=== PATIENT | female | born 1960 | race Two or more races ===

== ENCOUNTER 2017-11-13 12:40 | Emergency (ER) | payer OTHER ==
--- OUTSIDE RECORDS SUMMARY | 2017-11-13 13:30 | XMS REPORT ---
:1960 External Reference #:[id number] Author Organization [facility] Address [address] [address] Phone [phone] Care Team Providers Name Role Phone Bry Fields MD Primary Care Physician Unavailable Payers Type Date Identification Numbers Payment Provider Subscriber Commercial Policy Number: [id number] [employer] Medicaid Shauna Edwards PayID: [id number] [address] [address] [place] [address] Commercial Expires: 2017 Policy Number: [employer] Shauna Edwards [id number] Essential PayID: [id number] [address] [address] [place] [address] Problems Date Description Provider Status Onset: 11/11/2017 Disorder of bursa of shoulder Diony Esquivel MD Active region Onset: 11/11/2017 Sprain of shoulder and upper arm Diony Esquivel MD Active Onset: 11/11/2017 Iliotibial band friction Diony Esquivel MD Active syndrome Onset: 05/29/2013 Chest pain Easton Dong M.D., Active FACC, FASNC Family History Date Family Member(s) Problem(s) Comments General Diabetes brother General Valve replacement mother General Stroke mother and father General Hypertension mother Social History Type Date Description Comments Marital Status Single 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 Tartrate s tablet mouth Sanches, twice a day DO FACC Vitamin D3 Active Capsules [id number] 1 tab by Unknown /0000 mouth once per week Tums 00 Active prn for acid Unknown /0000 reflux Losartan Active Tablets 50-12.5mg Take 1 Unknown Potassium/Hydroc /0000 Tablet By hlorothiazide Mouth Every Day Miconazole 7 Active Cream 2% Insert 1 Unknown /0000 Applicatorfu l Vaginally Every Day Ventolin HFA Active Aerosol 108(90Bas Inhale 2 Unknown /0000 e) Puffs By mcg/Act Mouth Every 4 Hours Iron Active Tablets 325(65Fe) 1 by mouth Unknown /0000 mg every day Clotrimazole Active Cream 1% apply twice Unknown /0000 daily Albuterol Active Nebulizer (2.5mg/3M 1 vial via Unknown Sulfate /0000 L) 0.083% nebulizer 4 times daily as needed Simvastatin Hx Tablets 10mg 30tab 1 po qhs Unknown /0000 s - 01/09 Lisinopril/[place] Hx Tablets 20-25mg 90tab 1 po qd Unknown chlorothiazide /0000 s - 09/17 Amlodipine Hx Tablets 10mg 90tab 1 po qd Unknown Besylate /0000 s - 12/15 Ibuprofen Hx Tablets 600mg 100ta 1 by mouth Stevanovi /0000 bs tid prn for c, - pain Radomir, 09/17 MD Tums Hx prn Unknown /0000 - 12/15 Cpap Hx Device as directed Unknown /0000 used during - the night 01/09 for severe /2016 sleep apnea Alclometasone Hx Ointment 0.05% Unknown Dipropionate /0000 - 09/17 Cyclobenzaprine Hx Tablets 10mg one by mouth Unknown HCL /0000 three times - a day as 09/17 needed spasm Docqlace Hx Capsules 100mg take 2 Unknown /0000 capsule by - mouth at bed 09/17 time prn /2017 Hemorrhoid Hx prn Unknown Preperation /0000 Suppository - 09/17 Miconazole 00 Hx Cream 2% apply twice Unknown Nitrate /0000 a day (use - as needed ) 09/17 Omeprazole 00 Hx Capsules 20mg 1 by mouth Unknown /0000 DR every day - 01/09 Oxycodone-Acetam 00 Hx Tablets 5-325mg take 1 to 2 Unknown inophen /0000 tablets by - mouth every 09/17 6 to 8 hours /2018 as needed pain Tolterodine Hx Caps ER 4mg Unknown Tartrate ER /0000 24HR - 01/09 Triamcinolone Hx Lotion 0.1% apply to dry Unknown Acetonide /0000 skin once or - twice daily 09/17 Tucks Pads / Hx prn Unknown /0000 - 01/09 Simvastatin Hx Tablets 10mg take 1 Unknown /0000 tablet by - mouth at 01/09 Medications Administered in Office Medication Date Status Form Strength Qnty SIG Indications Ordering Provider Inj, Administered Injection Easton Mitchell Regadenoson, 013 Iker, 0.1 MG MOswaldo, FACDontae, FASNC Technetium TC Administered Injection Eastonradha Mitchell 99M 013 Iker TetrofosminMoses, FACC, Per Unit Dose FASNC Up To 40 Millicuries Vital Signs Date Vital Result Comment 11/11/2017 Height 62.5 inches 5'2.50" Weight 208.00 lb Heart Rate 78 /min BP Systolic 150 mmHg BP Diastolic 90 mmHg Pain Level 3 BMI (Body Mass Index) 37.4 kg/m2 09/27/2017 Height 62.5 inches 5'2.50" Weight 208.00 lb with shoes Heart Rate 66 /min BP Systolic Sitting 172 mmHg Lue lrg cuff BP Diastolic Sitting 110 mmHg Lue lrg cuff BP Systolic Standing 170 mmHg Lue lrg cuff BP Diastolic Standing 114 mmHg Lue lrg cuff Respiratory Rate 17 /min BMI (Body Mass Index) 37.4 kg/m2 Ejection Fraction 55-60% 06/22/2013-echo 01/17/2016 Height 62.5 inches 5'2.50" Weight 217.00 lb Heart Rate 72 /min BP Systolic 136 mmHg Ra large cuff BP Diastolic 102 mmHg Ra large cuff BP Systolic Sitting 128 mmHg LA large cuff BP Diastolic Sitting 100 mmHg LA large cuff BP Systolic Standing 120 mmHg LA BP Diastolic Standing 92 mmHg LA Respiratory Rate 16 /min BMI (Body Mass Index) 39.1 kg/m2 Ejection Fraction 55-60% 06/22/13 05/29/2013 Height 63.5 inches 5'3.50" Weight 234.00 lb Heart Rate 88 /min BP Systolic 112 mmHg Ra large cuff BP Diastolic 82 mmHg Ra large cuff BP Systolic Sitting 110 mmHg LA large cuff BP Diastolic Sitting 80 mmHg LA large cuff BP Systolic Standing 108 mmHg LA BP Diastolic Standing 80 mmHg LA Respiratory Rate 18 /min BMI (Body Mass Index) 40.8 kg/m2 Results Test Date Test Result H/L Range Note Affirm Vaginal Dna Probe 02/12/2014 Affirm Vaginal Dna (SEE NOTE) 1 Probe Urine Culture And 02/12/2014 Urine Culture (SEE NOTE) 2 Sensitivities 1 RUN DATE: 02/13/14 [facility] LAB LIVE PAGE 1 RUN TIME: [address] [place] [address] Specimen Inquiry Name: SHAUNA EDWARDS : [address]: Shirin Zamora Acct: [id number] Unit: [id number] AGE: 53 Location: [facility] Re02/12/14 SEX: F Status: DEP ER SPEC: [id number] SUELLEN: 02/12/14-[address] [facility] [address]: Jana MUKHERJEE REQ: [id number] RECD: 02/12/14943 STATUS: KOLBY BURNETT DR: Shirin Fisher MD PC _ SOURCE: VAGINAL SPDESC: ORDERED: Affirm Procedure Result Verified Site Affirm Vaginal DNA Probe Final 02/13/14- 1218 ML Organism 1 Negative Trichomonas Organism 2 POSITIVE GARDNERELLA Organism 3 Negative Mavis The presence of G. vaginalis, although suggestive, is not diagnostic for bacterial vaginosis. Results should be interpreted in conjunction with other clinical and laboratory data available. Women with vaginal discharge should be evaluated for risk factors of cervicitis and pelvic inflammatory disease, toxic shock syndrome (S.aureus), and if present, evaluated for organisms not included in this assay such as N. gonorrhoeae, C. trachomatis, Mobiluncus, Mycoplasma and/or Prevotella. Mixed infections may occur. The performance of this test on patient specimens collected during or immediately after antimicrobial therapy is unknown. The presence or absence of Mavis species, G. vaginalis or T. vaginalis cannot be used as a test for therapeutic success or failure. END OF REPORT * ML=Testing performed at Main Lab DEPARTMENT OF PATHOLOGY, [facility] [employer] [place], [place] [address] Manjinder Goodwin M.D. Director [facility] # [id number] 2 RUN DATE: 02/14/14 [facility] LAB LIVE PAGE 1 RUN TIME: [address] [facility] [employer] [place], [place] [address] Specimen Inquiry Name: SHAUNA EDWARDS : [address]: Shirin Zamora Acct: [id number] Unit: [id number] AGE: 53 Location: [facility] Re02/12/14 SEX: F Status: DEP ER SPEC: [id number] SUELLEN: 02/12/14-[address] [facility] [address]: Jana MUKHERJEE REQ: [id number] RECD: 02/12/14-946 STATUS: KOLBY BURNETT DR: Shirin Fisher MD PC _ SOURCE: URINE SPDESC: ORDERED: Urine Culture Procedure Result Verified Site Urine Culture Final 02/14/14- 1033 ML Organism 1 STREP GROUP B [place] Count 50-75,000 (Many) CFU/ML Susceptibility testing of penicillins and other B-lactams approved by FDA for treatment of Streptococcus pyogenes (Group A Strep) and Streptococcus agalactiae (Group B Strep) is not necessary for clinical purposes and need not be done routinely, since as with vancomycin, resistant strains have not been recognized. (CLSI B173-C81;p.66) Positive isolates will be saved for one week. Please call the Microbiology Laboratory if further susceptibility testing is needed. END OF REPORT * ML=Testing performed at Main Lab DEPARTMENT OF PATHOLOGY, [address] [place] [address] Manjinder Goodwin M.D. Director [facility] # [id number] Procedures Date CPT Code Description Status 10/08/2017 83414 Holter Monitor Review (24 hr)dr mendoza & miquel Completed only 10/06/2017 40732 ECG Monitor/Recording W/Visual Superimposition Scanning Completed 09/27/2017 30349 EKG Tracing & Interpretation Completed 01/30/2016 29102 EKG, Interpretation Only Completed 01/17/2016 55565 EKG Tracing & Interpretation Completed 06/26/2013 57502 Stress Test Completed 06/26/2013 45280 Myocardial Perfusion Imaging Tomographic (Spect) Completed Multiple Studies 06/22/2013 59165 ECHO Transthoracic, Real-Time 2D With Doppler And Color Completed Flow 06/19/2013 54618 ECHO Stress Test Incl Perf Contiuous ekg Monitoring Completed W/Phys Superv 05/29/2013 49353 EKG Tracing & Interpretation Completed 01/30/2013 51595 Polysomnography Sleep Staging 4+ Parameters Completed Encounters Type Date Location Provider CPT E/M Dx Office Visit 11/11/2017 [facility] Esquivel, [address] M76.32 1:45p Italo HERNANDEZ S46.011A M75.51 Office Visit 09/27/2017 3:40p [facility] Deacon Sanches, 32701 R00.2 DO FAC Office Visit 02/01/2016 10:42a [facility], Jag Arriaza M.D. 02392 K85.1 Hospitalists E87.6 I10 E78.0 Office Visit 01/31/2016 10:41a [facility], Jag Arriaza M.D. 77139 K85.1 Hospitalists E87.6 I10 E78.0 Office Visit 01/30/2016 9:15a [facility], LONNY Hathaway [address]91 K85.1 Hospitalists Office Visit 01/30/2016 10:40a [facility], Nancy Lund, 33492 K85.1 Hospitalists Moses E87.6 I10 E78.0 Office Visit 01/29/2016 10:39a [facility] [place], [address] K85.1 Assoc, Hospitalwanda Lopes E87.6 I10 E78.0 Office Visit 01/17/2016 1:40p [facility] [place] [address] R07.9 [facility] G47.33 E66.8 I10 E78.5 Office Visit 05/29/2013 1:15p [facility] Eastonradha Dong, [address] 786.50 [facility] Moses, FACC, FASMT Office Visit 09/23/2012 1:58p Enrrique Harpal Osuna, [address] 786.09 [facility] 780.79 Plan of Care Future Appointment(s):12/23/2017 8:30 am - Diony Esquivel MD at [facility]12/14/2017 11:20 am - Deacon Sanches, DO FACC at [facility]11/17/2017 10:00 am - Ica ECHO Schedule at [facility]11/17/2017 10:30 am - Deacon Sanches DO FACC at [facility]11/11/2017 - Diony Esquivel, MDM76.32 Iliotibial band syndrome, left legNew Therapy:Physical TherapyFollow up:Follow up: 6-8 weeks - PT - declined injection - Motrin OTC - Hip x-ray next joymiQ41.011A Strain of musc/tend the rotator cuff of right shoulder, initNew Therapy:Physical GaofuvcX87.51 Bursitis of right shoulderNew Therapy:Physical Therapy
[2017-11-13] MEDS ORDERED: NS 0.9% 1000 ML* 2,000 ML IV ONE (14:05)
[2017-11-13] MEDS ORDERED: Ketorolac INJ* 30 MG/ML 1 ML VIAL IV PUSH ONE (14:07)
[2017-11-13 14:30] LABS: ABS Basophils 0.1 10^3/ul (0-0.2); ABS Eosinophils 0 10^3/ul (0-0.6); ABS Lymphocytes 1.6 10^3/ul (1.0-4.8); ABS Monocytes 0.8 10^3/ul (0-0.8); ABS Neutrophils 12.1 10^3/ul (1.5-7.7); ABS Nucleated RBC 0 10^3/ul; Eosinophil % 0.1 % (0-6); Hematocrit 44 % (35-47); Hemoglobin 14.2 g/dl (12.0-16.0); Lymphocyte % 10.7 % (25-47); Mean Corpuscular HGB Conc 33 g/dl (31-36); Mean Corpuscular Hemoglobin 26 pg (27-31); Mean Corpuscular Volume 78 fL (80-97); Mean Platelet Volume 8.2 um3 (7.4-10.4); Nucleated Red Blood Cells % 0; Platelet Count 269 10^3/ul (150-450); Red Blood Count 5.58 10^6/ul (4.0-5.4); Red Cell Distribution Width 15 % (10.5-15); White Blood Count 14.6 10^3/ul (3.5-10.8)
[2017-11-13 14:42] LABS: INR 1.02 (0.77-1.02)
[2017-11-13 14:46] LABS: EGFR Non-African American 110.8 (>60)
[2017-11-13] MEDS ORDERED: cefTRIAXone(*) 1 GM in NS 0.9% 50 ML* 50 ML IVPB ONE (14:56)
--- NOTE | 2017-11-13 15:17 | RAD ---
INDICATION: Fever. COMPARISON: Comparison is made with prior study from August 10, 2016. TECHNIQUE: Dual-energy PA and lateral views of the chest were obtained. FINDINGS: The heart is within normal limits in size. Mediastinal and hilar contours appear within normal limits. The lungs are hyperinflated and clear. No pleural effusion is seen. IMPRESSION: NO EVIDENCE FOR ACTIVE CARDIOPULMONARY DISEASE.
[2017-11-13 16:36] LABS: Urine Appearance Cloudy; Urine Blood 2+ (Negative); Urine Color Yellow; Urine Ketones 1+ (Negative); Urine Protein Negative (Negative); Urine Specific Gravity 1.021 (1.010-1.030); Urine Urobilinogen Negative (Negative)
[2017-11-13 17:34] VITALS: BP 00/00
--- NOTE | 2017-11-13 23:52 | ED ---
Ovi Kirk Tecjoon, scribed for Sonya Corbett MD on 11/13/17 at 1349 . HPI Febrile Illness - HPI Summary HPI Summary: This patient is a 57 year old female presenting to [facility] accompanied by family with a chief complaint of febrile illness since approx. 3 days ago. Patient states that she had a fever, with pain all over, dizziness, and a sore throat. Patient additionally complains of pain in the bladder or uterus area. The pain is rated 7/10 in severity. Symptoms aggravated by nothing. Symptoms alleviated by nothing. 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 Patient additionally reports throat pain, dizziness, dysuria, fever, lower abd pain, back pain, hip pain. Pt's capitan grande band language is Malagasy. I understand Malagasy and her daughter is also present and translates, and pt also speaks and understands Mongolian. - History of Current Complaint Chief Complaint: EDGeneral Time Seen by Provider: 11/13/17 13:12 Hx Obtained From: Patient, Family/Iron Piler - daughter Onset/Duration: Started Days Ago - 3, Still Present, Worse Since - today Timing: Constant Initial Severity: Moderate Current Severity: Severe Pain Intensity: 7 Pain Scale Used: 0-10 Numeric Aggravating Factors: Nothing Alleviating Factors: Nothing Associated Signs and Symptoms: Dizziness, Dysuria, Sore Throat, Other: - fever , lower abd pain, back pain, hip pain - Additional Pertinent History Primary Care Physician: [id number] - Allergy/Home Medications Allergies/Adverse Reactions: Allergies Allergy/AdvReac Type Severity Reaction Status Date / Time No Known Allergies Allergy Verified 02/29/16 11:58 Home Medications: Home Medications Albuterol HFA INHALER* [Ventolin HFA Inhaler*] 2 puff INH Q4H PRN 11/13/17 [ History Confirmed 11/13/17] Ergocalciferol CAP* [Drisdol CAP*] 50,000 unit PO Q7D 11/13/17 [History Confirmed 11/13/17] Ferrous Sulfate TAB* 325 mg PO DAILY 11/13/17 [History Confirmed 11/13/17] Losartan/Hydrochlorothiazide [Losartan Potassium/Hydroc 50-12.5 mg] 1 tab PO DAILY 11/13/17 [History Confirmed 11/13/17] Metoprolol Tartrate TAB* [Lopressor TAB*] 12.5 mg PO BID 11/13/17 [History Confirmed 11/13/17] PMH/Surg Hx/FS Hx/Imm Hx Previously Healthy: No Endocrine/Hematology History: Denies: Hx Diabetes, Hx Thyroid Disease Cardiovascular History: Reports: Hx Hypercholesterolemia, Hx Hypertension Denies: Hx Congestive Heart Failure, Hx Pacemaker/ICD Respiratory History: Reports: Other Respiratory Problems/Disorders - Wakes up SOB Denies: Hx Asthma, Hx Chronic Obstructive Pulmonary Disease (COPD) GI History: Denies: Hx Ulcer History: Denies: Hx Dialysis, Hx Renal Disease Musculoskeletal History: Reports: Hx Back Problems - chronic back pain Sensory History: Reports: Hx Contacts or Glasses - reading glasses at home Opthamlomology History: Reports: Hx Contacts or Glasses - reading glasses at home Psychiatric History: Denies: Hx Panic Disorder - Surgical History Surgery Procedure, Year, and Place: C-sections X2; CARDIAC CATH -NO STENTS Infectious Disease History: No Infectious Disease History: Reports: Hx Tuberculosis Denies: Hx Clostridium Difficile, Hx Hepatitis, Hx Human Immunodeficiency Virus (HIV), Hx of Known/Suspected MRSA, Hx Shingles, Traveled Outside the [place] in Last 30 Days - Family History Known Family History: Positive: Cardiac Disease, Hypertension, Diabetes, Other - CVA - Social History Lives: With Family Alcohol Use: None Hx Substance Use: No Substance Use Type: Reports: None Hx Tobacco Use: No Smoking Status (MU): Never Smoked Tobacco Review of Systems Positive: Fever Positive: Sore Throat Cardiovascular: Negative Respiratory: Negative Positive: Abdominal Pain Positive: dysuria Musculoskeletal: Other - back pain, hip pain Positive: Arthralgia, Myalgia Skin: Negative Neurological: Other - dizziness Psychological: Normal All Other Systems Reviewed And Are Negative: Yes Physical Exam - Summary Physical Exam Summary: Appearance: Ill-appearing, moderate pain distress, Well-nourished Skin: Warm, color reflects adequate perfusion Head: Normal Head/Face inspection Eyes: Conjunctiva clear ENT: TMs normal, Red pharynx, Enlarged tonsils with exudate Neck: Supple, no nodes, no JVD. Respiratory: Lungs clear, Normal breath sounds, no respiratory distress Cardio: RRR, No murmur, pulses normal, brisk capillary refill Abdomen: Abd has mild diffuse lower abd tenderness, no guarding, no rebound, no masses. Bowel sounds: present Musculoskeletal: Strength Intact/ ROM intact. No calf tenderness. No edema. Psychological: Normal Neuro: Alert, muscle tone normal, no focal deficit Triage Information Reviewed: Yes Vital Signs On Initial Exam: Initial Vitals Temp Pulse Resp BP Pulse Ox 98.9 F 74 16 171/99 96 11/13/17 12:49 11/13/17 12:49 11/13/17 12:49 11/13/17 12:49 11/13/17 12:49 Vital Signs Reviewed: Yes Diagnostics - Vital Signs Vital Signs Temp Pulse Resp BP Pulse Ox 11/13/17 12:49 98.9 F 74 16 171/99 96 - Laboratory Result Diagrams: 11/13/17 14:18 11/13/17 14:18 Lab Statement: Any lab studies that have been ordered have been reviewed, and results considered in the medical decision making process. Re-Evaluation - Re-Evaluation First Eval Re-Evaluation Time: 14:07 Change: Unchanged Comment: Ketorolac given IV for pain and fever, 102.7 Second Eval Re-Evaluation Time: 14:56 Change: Improved Comment: IV ceftriaxone given for pos strep A, fever, elevated WBC count. Pt is not septic, can take po. Awaiting UA, continuing hydration with IV ABX. Course/Dx - Course Course Of Treatment: This patient is a 57 year old female presenting to [facility] accompanied by family with a chief complaint of febrile illness since approx. 3 days ago. Patient states that she had a fever, with pain all over, dizziness, and a sore throat. She also states she has lower abd pain in the uterus area, radiating to her back and hips. CXR reveals, per radiologist, IMPRESSION: NO EVIDENCE FOR ACUTE CARDIOPULMONARY DISEASE. ED physician has reviewed this radiology report. Bloodwork Obtained. Urinalysis Obtained. We noted patient had sx of sore throat, fever, abd pain and checked for strep and flu, ordered IV fluids and ketorolac for pain and fever. Test results show positive strep A, neg influenza, elevated wbc count, neg CXR, UA with wbcs and leuk esterase. Pt given IV ceftriaxone which will treat strep and UTI. Patient will be discharged with a dx of strep throat, pharyngitis, fever, UTI. Patient is advised to follow up with Dr. Fields in 3 days. The patient is agreeable with this plan. - Febrile Illness Differential Diagnoses: Bacteremia, Pneumonia, Sepsis, Other: - strep throat, influenza - Diagnoses Provider Diagnoses: Strep throat, Fever, Pharyngitis, UTI (urinary tract infection), Acute tonsillitis Discharge - Sign-Out/Discharge Documenting (check all that apply): Discharge/Admit/Transfer - home - Discharge Plan Condition: Stable Disposition: HOME Prescriptions: Amoxicillin PO (*) [Amoxicillin 875 MG (*)] 875 mg PO BID #20 tab Patient Education Materials: Urinary Tract Infection in Women (ED), Strep Throat (ED) Print Language: MALAY Referrals: Bry Fields MD [Primary Care Provider] - 2 Days Additional Instructions: Your strep test was positive. Your chest xray showed no active disease. We treated you with IV fluids and ceftriaxone 1gram IV in the ER. You will need to take Amoxicillin 500mg twice a day for 10 days to complete the treatment of strep. Your urine also looks like a UTI. This will be treated by the ceftriaxone and amoxicillin. We may call to change the antibiotic if the urine culture is resistant to amoxicillin, but we will not know that for a few days. Return to the ED for any new or worsening symptoms. - Billing Disposition and Condition Condition: STABLE Disposition: HOME The documentation as recorded by the Ovi beard Tecjoon accurately reflects the service I personally performed and the decisions made by , Sonya Corbett MD.
== END 2017-11-13 17:32 | disposition home or self-care (01) ==
LOC: ED 12:40
DX: J02.0 Streptococcal pharyngitis (principal); N39.0 Urinary tract infection, site not specified; I10 Essential (primary) hypertension; E78.00 Pure hypercholesterolemia, unspecified; M54.9 Dorsalgia, unspecified; G89.29 Other chronic pain
CPT/HCPCS: 36415; 71046; 80053; 81003; 81015; 83605; 83735; 85025; 85610; 86140; 86308; 86664; 86665; 86703; 87040; 87086; 87502; 87651; 96360; 96361; 96374; 96375; 99282; J0696; J1885

== ENCOUNTER 2018-06-29 22:00 | Emergency (ER) | payer BC, OTHER ==
[2018-06-29] MEDS ORDERED: Naproxen TAB* 250 MG PO ONE (22:25)
[2018-06-29] MEDS ORDERED: Albuterol/Ipratropium NEB.SOL* Albuterol 2.5 MG/Ipratropium 0.5 MG 3 ML INH ONE (22:25)
--- NOTE | 2018-06-29 22:26 | ED ---
HPI Febrile Illness - HPI Summary HPI Summary: A 57 y/o F presents to ED with c/o sore throat onset 3-4 days ago. Associated sx : fever, bilat red eyes, productive cough, rhinorrhea. Her asthma has been worse today than baseline. Pt states being around someone sick recently. 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 Pain is rated as 5 out of 10. - History of Current Complaint Chief Complaint: EDFever Time Seen by Provider: 06/29/18 22:19 Hx Obtained From: Patient Onset/Duration: Started Days Ago, Still Present Timing: Constant Initial Severity: Moderate Current Severity: Moderate Pain Intensity: 5 Pain Scale Used: 0-10 Numeric Associated Signs and Symptoms: Cough - productive, Sore Throat, Other: - pos: fever, red eyes, rhinorrhea - Additional Pertinent History Primary Care Physician: DOLLY - Allergy/Home Medications Allergies/Adverse Reactions: Allergies Allergy/AdvReac Type Severity Reaction Status Date / Time No Known Allergies Allergy Verified 02/29/16 11:58 PMH/Surg Hx/FS Hx/Imm Hx Previously Healthy: No Endocrine/Hematology History: Denies: Hx Diabetes, Hx Thyroid Disease Cardiovascular History: Reports: Hx Hypercholesterolemia, Hx Hypertension Denies: Hx Congestive Heart Failure, Hx Pacemaker/ICD Respiratory History: Reports: Hx Asthma, Other Respiratory Problems/Disorders - Wakes up SOB Denies: Hx Chronic Obstructive Pulmonary Disease (COPD) GI History: Denies: Hx Ulcer History: Denies: Hx Dialysis, Hx Renal Disease Musculoskeletal History: Reports: Hx Back Problems - chronic back pain Sensory History: Reports: Hx Contacts or Glasses - reading glasses at home Opthamlomology History: Reports: Hx Contacts or Glasses - reading glasses at home Psychiatric History: Denies: Hx Panic Disorder - Surgical History Surgery Procedure, Year, and Place: C-sections X2; CARDIAC CATH -NO STENTS Infectious Disease History: No Infectious Disease History: Reports: Hx Tuberculosis Denies: Hx Clostridium Difficile, Hx Hepatitis, Hx Human Immunodeficiency Virus (HIV), Hx of Known/Suspected MRSA, Hx Shingles, Traveled Outside the [place] in Last 30 Days - Family History Known Family History: Positive: Cardiac Disease, Hypertension, Diabetes, Other - CVA - Social History Occupation: Employed Full-time Lives: With Family Alcohol Use: None Hx Substance Use: No Substance Use Type: Reports: None Hx Tobacco Use: No Smoking Status (MU): Never Smoked Tobacco Review of Systems Positive: Fever Positive: Erythema - bilateral Positive: Sore Throat, Nasal Discharge Positive: Cough - productive All Other Systems Reviewed And Are Negative: Yes Physical Exam - Summary Physical Exam Summary: Appearance: Well appearing, no pain distress Skin: warm, dry, reflects adequate perfusion, no rash Head/face: normal Eyes: EOMI, ANJELICA, Bilateral conjunctival injection ENT: mucous membranes moist; nasal mucosa inflammation, clear discharge; erythema without exudates on tonsils. Neck: supple, non-tender Respiratory: CTA, breath sounds present Cardiovascular: RRR, pulses symmetrical Abdomen: non-tender, soft Bowel Sounds: present Musculoskeletal: normal, strength/ROM intact Neuro: normal, sensory motor intact, A&Ox3 Triage Information Reviewed: Yes Vital Signs On Initial Exam: Initial Vitals Temp Pulse Resp BP Pulse Ox 97.6 F 87 20 149/96 96 06/29/18 22:01 06/29/18 22:01 06/29/18 22:01 06/29/18 22:01 06/29/18 22:01 Vital Signs Reviewed: Yes Diagnostics - Vital Signs Vital Signs Temp Pulse Resp BP Pulse Ox 06/29/18 22:01 97.6 F 87 20 149/96 96 - Laboratory Lab Statement: Any lab studies that have been ordered have been reviewed, and results considered in the medical decision making process. Course/Dx - Course Course Of Treatment: Nurse's note reviewed. Patient with a history of asthma presents with upper respiratory symptoms and conjunctivitis. There is no significant wheezing but patient felt better after breathing treatment. She was given steroids here and treated symptomatically with decongestants and Polytrim eyedrops. Pierron viral. - Febrile Illness Differential Diagnoses: Other: - URI, influenza, strep, asthma exacerbation - Diagnoses Provider Diagnoses: Upper respiratory infection, Viral conjunctivitis of both eyes Discharge - Sign-Out/Discharge Documenting (check all that apply): Patient Departure - D/C - Discharge Plan Condition: Improved Disposition: HOME Prescriptions: Albuterol HFA INHALER* [Ventolin HFA Inhaler*] 2 puff INH Q4H PRN #1 mdi PRN Reason: Sob/Wheezing Guaifenesin/Pseudo 600/60(NF) [Mucinex D 600/60 (NF)] 1 tab PO Q12H #12 tab Polymyx/Trimethoprim OPTH* [Polytrim OPHTH*] 1 drop BOTH EYES Q3H #1 btl Patient Education Materials: Upper Respiratory Infection (ED), Conjunctivitis ( ED) Referrals: Bry Fields MD [Primary Care Provider] - Additional Instructions: Humidifier while sleeping. Tylenol, ibuprofen as needed for fever or aches. Call your doctor to follow-up in the morning. Return with difficulty breathing , worse, new symptoms or other concerns. - Billing Disposition and Condition Condition: IMPROVED Disposition: Home - Attestation Statements Document Initiated by Scribe: Yes Documenting Scribe: Eric Be Provider For Whom Scribe is Documenting (Include Credential): Dr. Ryan Forte MD Scribe Attestation: Eric Kirk scribed for Dr. Ryan Forte MD on 06/29/18 at 2348. Scribe Documentation Reviewed: Yes Provider Attestation: The documentation as recorded by the Eric beard accurately reflects the service I personally performed and the decisions made by , Dr. Ryan Forte MD Status of Scribe Document: Viewed
[2018-06-29] MEDS ORDERED: Dexamethasone IV* 4 MG/ML 1 ML (4 MG) IM ONE (23:11)
[2018-06-29 23:50] VITALS: BP 152/90
== END 2018-06-29 23:51 | disposition home or self-care (01) ==
LOC: ED 22:00
DX: J06.9 Acute upper respiratory infection, unspecified (principal); B30.9 Viral conjunctivitis, unspecified; J45.909 Unspecified asthma, uncomplicated
CPT/HCPCS: 87651; 96372; 99283; A9270-GY; J1100

== ENCOUNTER 2018-12-24 21:31 | Emergency (ER) | payer BC ==
[2018-12-24] MEDS ORDERED: hydrALAZINE IV* 20 MG/ML VIAL IV SLOW PU ONE (22:03)
[2018-12-24 22:22] LABS: ABS Basophils 0.1 10^3/ul (0-0.2); ABS Eosinophils 0.3 10^3/ul (0-0.6); ABS Lymphocytes 2.8 10^3/ul (1.0-4.8); ABS Monocytes 0.6 10^3/ul (0-0.8); ABS Neutrophils 3.6 10^3/ul (1.5-7.7); Eosinophil % 3.6 %; Hematocrit 42 % (35-47); Hemoglobin 13.7 g/dL (12.0-16.0); Lymphocyte % 38.4 %; Mean Corpuscular HGB Conc 33 g/dL (31-36); Mean Corpuscular Hemoglobin 26 pg (27-31); Mean Corpuscular Volume 79 fL (80-97); Mean Platelet Volume 8.3 fL (7.4-10.4); Nucleated Red Blood Cells % 0.1; Platelet Count 294 10^3/uL (150-450); Red Cell Distribution Width 14 % (10-15); White Blood Count 7.3 10^3/uL (3.5-10.8)
--- NOTE | 2018-12-24 22:22 | ED ---
Hypertension - HPI Summary HPI Summary: 58-year-old female presents with multiple complaints today. States her blood pressures are elevated but has not been consistently taking her medication due to insurance issues. She admits to some chest pressure and shortness breath. She also notes headache. She admits to diarrhea. No nausea or vomiting. Has flank pain due to what she believes is a kidney stone on right side. She'll states she had a tick bite a couple days ago. She denies any cough. No fevers. No neck stiffness. States she has a headache. Not worst headache of life. Intensity is in 6 out of 10. - History of Current Complaint Chief Complaint: EDHypertension Stated Complaint: HIGH BP Time Seen by Provider: 12/24/18 21:49 - Allergies/Home Medications Allergies/Adverse Reactions: Allergies Allergy/AdvReac Type Severity Reaction Status Date / Time No Known Allergies Allergy Verified 02/29/16 11:58 Home Medications: Home Medications Ibuprofen TAB* [Motrin TAB* 600 MG] 600 mg PO TID PRN 12/24/18 [History Confirmed 12/25/18] Losartan/HCTZ 100/25 (NF) [Hyzaar 100/25 (NF)] 1 tab PO DAILY 12/24/18 [History Confirmed 12/25/18] Metoprolol Tartrate TAB* [Lopressor TAB*] 25 mg PO DAILY 12/24/18 [History Confirmed 12/25/18] Simvastatin TAB(NF) [Zocor 10 MG (NF)] 10 mg PO DAILY 12/24/18 [History Confirmed 12/25/18] PMH/Surg Hx/FS Hx/Imm Hx Endocrine/Hematology History: Denies: Hx Anticoagulant Therapy, Hx Diabetes, Hx Thyroid Disease Cardiovascular History: Reports: Hx Hypercholesterolemia, Hx Hypertension Denies: Hx Congestive Heart Failure, Hx Pacemaker/ICD Respiratory History: Reports: Hx Asthma, Other Respiratory Problems/Disorders - Wakes up SOB Denies: Hx Chronic Obstructive Pulmonary Disease (COPD) GI History: Denies: Hx Ulcer History: Denies: Hx Dialysis, Hx Renal Disease Musculoskeletal History: Reports: Hx Back Problems - chronic back pain Sensory History: Reports: Hx Contacts or Glasses - reading glasses at home Opthamlomology History: Reports: Hx Contacts or Glasses - reading glasses at home Psychiatric History: Denies: Hx Panic Disorder - Surgical History Surgery Procedure, Year, and Place: C-sections X2; CARDIAC CATH -NO STENTS Infectious Disease History: No Infectious Disease History: Reports: Hx Tuberculosis Denies: Hx Clostridium Difficile, Hx Hepatitis, Hx Human Immunodeficiency Virus (HIV), Hx of Known/Suspected MRSA, Hx Shingles, Traveled Outside the [place] in Last 30 Days - Family History Known Family History: Positive: Cardiac Disease, Hypertension, Diabetes, Other - CVA - Social History Alcohol Use: None Hx Substance Use: No Substance Use Type: Reports: None Hx Tobacco Use: No Smoking Status (MU): Never Smoked Tobacco Review of Systems Negative: Fever Positive: Chest Pain Positive: Shortness Of Breath Negative: Vomiting Positive: flank pain Positive: Headache All Other Systems Reviewed And Are Negative: Yes Physical Exam Triage Information Reviewed: Yes Vital Signs On Initial Exam: Initial Vitals Temp Pulse Resp BP Pulse Ox 97.4 F 71 18 189/109 97 12/24/18 21:35 12/24/18 21:35 12/24/18 21:35 12/24/18 21:35 12/24/18 21:35 Vital Signs Reviewed: Yes Appearance: Positive: Well-Appearing Skin: Positive: Warm, Dry, Other - tick bite present on chest with no rash Head/Face: Positive: Normal Head/Face Inspection Eyes: Positive: Normal, EOMI, ANJELICA, Conjunctiva Clear ENT: Positive: Normal ENT inspection, Pharynx normal, TMs normal Respiratory/Lung Sounds: Positive: Clear to Auscultation, Breath Sounds Present Cardiovascular: Positive: Normal, RRR Abdomen Description: Positive: Nontender, Soft, CVA Tenderness (R). Negative: CVA Tenderness (L) Bowel Sounds: Positive: Present Musculoskeletal: Positive: Normal Neurological: Positive: Normal Psychiatric: Positive: Normal Diagnostics - Vital Signs Vital Signs Temp Pulse Resp BP Pulse Ox 12/24/18 21:38 72 189/109 96 12/24/18 21:36 72 95 12/24/18 21:35 97.4 F 71 18 189/109 97 - Laboratory Result Diagrams: 12/24/18 22:15 12/24/18 22:15 Lab Statement: Any lab studies that have been ordered have been reviewed, and results considered in the medical decision making process. - Radiology chest Radiology Interpretation Completed By: ED Physician Summary of Radiographic Findings: no active disease - CT brain CT Interpretation Completed By: Radiologist Summary of CT Findings: IMPRESSION: Normal noncontrast head CT. abd CT Interpretation Completed By: Radiologist Summary of CT Findings: 1. No CT findings to correlate with patient's symptomatology. Specifically no. obstructing renal or ureteral calculi. 2. Right nephrolithiasis. - EKG No standard instances Cardiac Rate: NL EKG Rhythm: Sinus Rhythm EKG Comparison: No Significant Change Summary of EKG Findings: sinus rhythm Re-Evaluation - Re-Evaluation First Eval Re-Evaluation Time: 23:50 Change: Improved Comment: headache better. chest pain free Second Eval Re-Evaluation Time: 01:17 Comment: after morphine develop nausea, and abd pain and chest feels funny and dizzy. troponin .02. this is likely reaction to morphine Hypertension Course/Dx - Course Course Of Treatment: 58-year-old female presents with multiple complaints today. States her blood pressures are elevated but has not been consistently taking her medication due to insurance issues. She admits to some chest pressure and shortness breath. She also notes headache. She admits to diarrhea. No nausea or vomiting. Has flank pain due to what she believes is a kidney stone on right side. She'll states she had a tick bite a couple days ago. She denies any cough. No fevers. No neck stiffness. States she has a headache. Not worst headache of life. Intensity is in 6 out of 10. On examination has elevated blood pressure. EKG shows sinus rhythm. Has tick bite present on chest but no sign of erythema migrans. Abdomen soft nontender. Tenderness minimal right flank. Normal neuro exam. CT brain normal. CT abdomen only shows nephrolithiasis. wbc normal. D-dimer negative. Troponin 0.01. BNP normal. gave hydrazaline and blood pressure came down. patient was chest pain free and abd pain free until gave morphine for headache and then develop nausea, abd pain, dizzy and states chest feels funny. troponin was drawn after this point and is still normal at .02. gave zofran and feeling better so likely reaction to morphine. discussed will have restart htn medication.blood pressure within normal limits after hydrazaline. told otherwise to follow up with primary about chest pain for futher work up. patient understand and agrees with plan. - Diagnoses Differential Diagnosis/HQI PQRI: Hypertension, Hypertensive Urgency, Migraine Headache Provider Diagnoses: HTN (hypertension), Chest pain, Headache, Right nephrolithiasis, Tick bite - Critical Care Time Critical Care Time: 30-74 min - 50 mins Discharge - Sign-Out/Discharge Documenting (check all that apply): Patient Departure Patient Received Moderate/Deep Sedation with Procedure: No - Discharge Plan Condition: Good Disposition: HOME Patient Education Materials: Hypertension (ED) Referrals: Easton Dong MD [Medical Doctor] - Bry Fields MD [Primary Care Provider] - Additional Instructions: restart blood pressure medications Follow up with primary or cardiology within 5 days Take tyenlol as needed for headache Return to ED if develop any new or worsening symptoms - Billing Disposition and Condition Condition: GOOD Disposition: Home
[2018-12-24 22:31] LABS: INR 1.02 (0.82-1.09)
[2018-12-24 22:42] LABS: Albumin 3.8 g/dL (3.2-5.2); Albumin/Globulin Ratio 0.9 (1-3); BUN/Creatinine Ratio 26.7 (8-20); Calcium 9.6 mg/dL (8.6-10.3); EGFR African American 77.3 (>60); EGFR Non-African American 63.9 (>60); Globulin 4.2 g/dL (2-4); Potassium 3.1 mmol/L (3.5-5.0); Total Bilirubin 0.6 mg/dL (0.2-1.0)
[2018-12-24 22:44] LABS: Troponin I 0.01 ng/mL (<0.04)
[2018-12-24] MEDS ORDERED: Morphine 4 MG/ML VIAL (1 ml) 4 MG/ML VIAL IV ONE (23:51)
[2018-12-25] MEDS ORDERED: Ondansetron INJ* 2 MG/ML VIAL IV ONE (01:16)
[2018-12-25 02:34] VITALS: BP 128/81
== END 2018-12-25 02:33 | disposition home or self-care (01) ==
LOC: ED 21:31
DX: I10 Essential (primary) hypertension (principal); R07.9 Chest pain, unspecified; N20.0 Calculus of kidney; S20.369A Insect bite (nonvenomous) of unspecified front wall of thorax, initial encounter; R06.02 Shortness of breath; R10.84 Generalized abdominal pain; R51 Headache; E78.00 Pure hypercholesterolemia, unspecified; M54.9 Dorsalgia, unspecified; W57.XXXA Bitten or stung by nonvenomous insect and other nonvenomous arthropods, initial encounter; Y92.9 Unspecified place or not applicable
CPT/HCPCS: 36415; 70450; 71045; 74176; 80053; 83605; 83880; 84484; 85025; 85379; 85610; 93005; 96374; 96375; 99284; J0360; J2270; J2405

== ENCOUNTER 2020-07-16 05:19 | Inpatient (IN) ==
[2020-07-16] MEDS ORDERED: Ondansetron 4 mg VIAL 2 MG/ML 2 ml VIAL IV ONE (05:46)
[2020-07-16 05:58] LABS: ABS Lymphocytes 1.6 10^3/ul (1.0-4.8); ABS Monocytes 0.7 10^3/ul (0-0.8); ABS Neutrophils 3.5 10^3/ul (1.5-7.7); Eosinophil % 0.1 %; Hematocrit 46 % (35-47); Lymphocyte % 26.8 %; Mean Corpuscular HGB Conc 33 g/dL (31-36); Mean Corpuscular Hemoglobin 26 pg (27-31); Mean Corpuscular Volume 78 fL (80-97); Mean Platelet Volume 8.4 fL (7.4-10.4); Platelet Count 230 10^3/uL (150-450); Red Blood Count 5.87 10^6 /uL (3.70-4.87); Red Cell Distribution Width 14 % (10-15); White Blood Count 5.8 10^3/uL (3.5-10.8)
[2020-07-16] MEDS ORDERED: NS 0.9% 1000 ml BAG 1,000 ML IV ONE (06:04)
[2020-07-16 06:10] LABS: Influenza A Molecular Negative (Negative); Influenza B Molecular Negative (Negative)
[2020-07-16 06:15] LABS: Albumin 3.7 g/dL (3.2-5.2); Albumin/Globulin Ratio 0.8 (1-3); BUN/Creatinine Ratio 27.7 (8-20); C Reactive Protein 42.33 mg/L (<8.01); Calcium 8.3 mg/dL (8.6-10.3); EGFR African American 84.6 (>60); EGFR Non-African American 69.9 (>60); Globulin 4.5 g/dL (2-4); Total Bilirubin 0.7 mg/dL (0.2-1.0); Total Protein 8.2 g/dL (6.4-8.9)
[2020-07-16 06:17] LABS: Troponin I 0.02 ng/mL (<0.03)
[2020-07-16 06:18] LABS: Potassium 2.7 mmol/L (3.5-5.0)
[2020-07-16] MEDS ORDERED: KCL 20 MEQ/100 ML IVPREMIX 20 MEQ/100 ML BAG IV ONE (06:19)
[2020-07-16 06:33] LABS: Activated Partial Thrombo Time 26.9 seconds (26.0-38.0); INR 1.14 (0.82-1.09)
[2020-07-16 06:35] LABS: Ferritin 222.8 ng/mL (11-307)
[2020-07-16 06:48] LABS: Urine Appearance Cloudy; Urine Bilirubin Negative (Negative); Urine Blood 2+ (Negative); Urine Color Amber; Urine Glucose Negative (Negative); Urine Ketones 1+ (Negative); Urine Nitrite Negative (Negative); Urine Protein 2+(100 mg/dL) (Negative); Urine Specific Gravity 1.026 (1.010-1.030); Urine Urobilinogen Negative (Negative)
[2020-07-16] MEDS ORDERED: Potassium Chlor 20 meq TAB.ER PO ONE (06:48)
[2020-07-16 06:51] LABS: Urine Bacteria Absent (Absent); Urine Red Blood Cell 3+(>10/hpf) (Absent); Urine Squamous Epithelial Cell Present (Absent); Urine White Blood Cell 2+(11-20/hpf) (Absent)
[2020-07-16 09:41] LABS: Anion Gap 6 mmol/L (2-11); BUN/Creatinine Ratio 34.5 (8-20); Blood Urea Nitrogen 20 mg/dL (6-24); CO2 Carbon Dioxide 23 mmol/L (22-32); Calcium 6.7 mg/dL (8.6-10.3); Chloride 111 mmol/L (101-111); EGFR African American 127.9 (>60); EGFR Non-African American 105.7 (>60); Glucose 103 mg/dL (70-100); Potassium 3.1 mmol/L (3.5-5.0); Sodium 140 mmol/L (135-145)
[2020-07-16] MEDS ORDERED: Al Hydrox/Mg Hydrox/Simet LIQ 30 ML UDC PO PRN (09:42)
[2020-07-16] MEDS ORDERED: Ondansetron 4 mg VIAL 2 MG/ML 2 ml VIAL IV PRN (09:42)
[2020-07-16] MEDS ORDERED: Magnesium Hydroxide LIQ 30 ML UDC PO PRN (09:42)
[2020-07-16 09:45] LABS: Troponin I 0.06 ng/mL (<0.03)
[2020-07-16] MEDS ORDERED: Remdesivir 100 mg Vial 100 MG in NS 0.9% 250 ml 230 ML IV SCH (09:45)
[2020-07-16] MEDS ORDERED: Magnesium Sulfate IV 1GM/100ML 1 GM/100 ML BAG IV ONE ×2 (09:49→12:38)
[2020-07-16] MEDS ORDERED: NS 0.9% 1000 ml BAG 1,000 ML IV SCH (10:15)
[2020-07-16] MEDS: KCL 20 MEQ/100 ML IVPREMIX 20 MEQ/100 ML BAG IV SCH ×3 (10:38→16:47)
[2020-07-16] MEDS ORDERED: Remdesivir 100 mg Vial 200 MG in NS 0.9% 250 ml 210 ML IV ONE (11:30)
[2020-07-16 11:44] LABS: Magnesium 1.6 mg/dL (1.9-2.7)
[2020-07-16] MEDS ORDERED: Albuterol 2.5mg/3 ml (0.083%) NEB.SOLN INH SCH (14:00)
[2020-07-16] MEDS ORDERED: Albuterol HFA INHALER 8 gm MDI INH PRN (14:16)
[2020-07-16] MEDS ORDERED: Albuterol 2.5mg/3 ml (0.083%) NEB.SOLN INH PRN (14:46)
[2020-07-16] MEDS: Heparin 5000 UNITS/ML 1 mL VIAL SUBCUT SCH ×2 (15:03→21:34)
[2020-07-16 15:23] LABS: Troponin I 0.07 ng/mL (<0.03)
[2020-07-16 18:42] LABS: Troponin I 0.07 ng/mL (<0.03)
[2020-07-16] MEDS: Fluticasone NASAL SPRAY 50MCG 16 gm SPRAY BTL INTRANASAL SCH (21:34)
[2020-07-17] MEDS: Heparin 5000 UNITS/ML 1 mL VIAL SUBCUT SCH ×3 (05:41→20:33)
[2020-07-17] MEDS ORDERED: Potassium Chlor 20 meq TAB.ER PO ONE (07:01)
[2020-07-17 08:38] LABS: ABS Lymphocytes 2.6 10^3/ul (1.0-4.8); ABS Monocytes 0.7 10^3/ul (0-0.8); ABS Neutrophils 2.8 10^3/ul (1.5-7.7); Eosinophil % 0.1 %; Hematocrit 39 % (35-47); Hemoglobin 12.8 g/dL (12.0-16.0); Lymphocyte % 42.9 %; Mean Corpuscular HGB Conc 33 g/dL (31-36); Mean Corpuscular Hemoglobin 26 pg (27-31); Mean Corpuscular Volume 79 fL (80-97); Mean Platelet Volume 8.3 fL (7.4-10.4); Platelet Count 232 10^3/uL (150-450); Red Blood Count 4.93 10^6 /uL (3.70-4.87); Red Cell Distribution Width 14 % (10-15); White Blood Count 6.1 10^3/uL (3.5-10.8)
[2020-07-17 08:52] LABS: Calcium 7.8 mg/dL (8.6-10.3); EGFR Non-African American 101.6 (>60); Magnesium 1.7 mg/dL (1.9-2.7); Potassium 3.6 mmol/L (3.5-5.0)
[2020-07-17] MEDS ORDERED: ERGOCALCIFEROL 50000 UNIT PO SCH (10:00)
[2020-07-17] MEDS: Remdesivir 100 mg Vial 100 MG in NS 0.9% 250 ml 230 ML IV SCH (10:25)
[2020-07-17] MEDS ORDERED: Magnesium Sulfate IV 3 GM in NS 0.9% 100 ml BAG 100 ML IVPB ONE (10:30)
[2020-07-17] MEDS: Fluticasone NASAL SPRAY 50MCG 16 gm SPRAY BTL INTRANASAL SCH ×2 (10:38→21:40)
[2020-07-17] MEDS: NFT: IPRATROPIUM BR (NF)0.06% NASAL 1 SPRAY BTL BOTH NARES SCH ×3 (10:39→20:26)
[2020-07-18] MEDS: Heparin 5000 UNITS/ML 1 mL VIAL SUBCUT SCH (05:00)
[2020-07-18 06:52] LABS: ABS Lymphocytes 2.7 10^3/ul (1.0-4.8); ABS Monocytes 0.7 10^3/ul (0-0.8); ABS Neutrophils 2.3 10^3/ul (1.5-7.7); Eosinophil % 0.4 %; Hematocrit 38 % (35-47); Hemoglobin 12.2 g/dL (12.0-16.0); Lymphocyte % 46.4 %; Mean Corpuscular HGB Conc 32 g/dL (31-36); Mean Corpuscular Hemoglobin 26 pg (27-31); Mean Corpuscular Volume 79 fL (80-97); Mean Platelet Volume 8.9 fL (7.4-10.4); Platelet Count 231 10^3/uL (150-450); Red Blood Count 4.79 10^6 /uL (3.70-4.87); Red Cell Distribution Width 14 % (10-15); White Blood Count 5.7 10^3/uL (3.5-10.8)
[2020-07-18 07:10] LABS: BUN/Creatinine Ratio 36.5 (8-20); Calcium 7.7 mg/dL (8.6-10.3); EGFR African American 145.1 (>60); EGFR Non-African American 119.9 (>60)
[2020-07-18] MEDS: Remdesivir 100 mg Vial 100 MG in NS 0.9% 250 ml 230 ML IV SCH (09:03)
[2020-07-18] MEDS: Fluticasone NASAL SPRAY 50MCG 16 gm SPRAY BTL INTRANASAL SCH (09:05)
[2020-07-18 12:52] VITALS: BP 123/67
== END 2020-07-18 14:45 | disposition home or self-care (01) | DRG 137 ==
LOC: MED 05:19 → ED 05:19 → MED 12:24
PROVIDERS: ADMIT Internal Medicine; ATTEND Internal Medicine